=== PATIENT | female | born 1975 | race Caucasian/White ===

== ENCOUNTER → 2020-04-06 | Outpatient (CLI) | payer OTHER ==
[~2020-04-06] MED LIST: OXYC1TAB15 PO
== END ==
LOC: LAB 12:32
PROVIDERS: ATTEND Surgery
DX: Z01.812 Encounter for preprocedural laboratory examination (principal); Z20.822 Contact with and (suspected) exposure to COVID-19; K82.8 Other specified diseases of gallbladder
CPT/HCPCS: U0003

== ENCOUNTER 2020-04-09 05:54 | Day surgery (SDC) | payer OTHER ==
[~2020-04-09] VITALS: Ht 165.1 cm; Wt 99.8 kg
[2020-04-09] MEDS ORDERED: IV RINGERS,LACTATED 1000ML 1,000 ML IV SCH ×2 (06:30→07:00)
[2020-04-09] MEDS ORDERED: ACETAMINOPHEN 500 MG TABLET PO ONE (06:30)
[2020-04-09] MEDS ORDERED: MORPHINE SULFATE 2 MG/ML VIAL. IVP PRN (07:00)
[2020-04-09] MEDS ORDERED: fentaNYL PF VIAL 100 MCG/2 ML VIAL IVP PRN (07:00)
[2020-04-09] MEDS ORDERED: PROCHLORPERAZINE 10 MG/2 ML VIAL. IVP PRN (07:00)
[2020-04-09] MEDS ORDERED: HYDROmorphone 2 MG/ML VIAL IVP PRN (07:00)
[2020-04-09] MEDS ORDERED: IOHEXOL 300 MG/ML 50 ML VIAL. ONE (07:19)
[2020-04-09] MEDS ORDERED: BUPIVACAINE-EPI 0.25% 30 ML VIAL KIT. ONE (07:19)
[2020-04-09] MEDS ORDERED: SURGICEL HEMOSTAT 4X8 EACH. ONE (07:19)
[2020-04-09] MEDS ORDERED: MIDAZOLAM HCL/PF 2 MG/2 ML VIAL. ONE (07:32)
[2020-04-09] MEDS ORDERED: ROCURONIUM 50 MG/5 ML VIAL. ONE (07:32)
[2020-04-09] MEDS ORDERED: fentaNYL PF VIAL 100 MCG/2 ML VIAL ONE ×3 (07:33→09:22)
[2020-04-09] MEDS ORDERED: ONDANSETRON PF 4 MG/2 ML VIAL. ONE (07:48)
[2020-04-09] MEDS ORDERED: PROPOFOL 10 MG/ML (20ML) VIAL. IV ONE (07:48)
[2020-04-09] MEDS ORDERED: DEXAMETHASONE SOD PHOS 4 MG/ML VIAL ONE (07:48)
[2020-04-09] MEDS ORDERED: LIDOCAINE 2% PF 5 ML VIAL. ONE (07:48)
[2020-04-09] MEDS ORDERED: GLYCOPYRROLATE 1 MG/5 ML VIAL. ONE (07:49)
[2020-04-09] MEDS ORDERED: SEVOFLURANE 31 TO 60 MINUTES. IH ONE (07:49)
[2020-04-09] MEDS ORDERED: NEOSTIGMINE METHYLSULFATE 5 MG/5 ML SYRINGE. ONE (07:49)
--- NOTE | 2020-04-09 07:50 | PDOC1 ---
History and Physical Date of Admission Date of Admission DATE: 04/09/20 TIME: 07:47 Identification/Chief Complaint Chief Complaint Right upper quadrant abdominal pain Source Source: Patient History of Present Illness History of Present Illness 45-year-old female with several month history of right upper quadrant abdominal pain radiating to her back and shoulder worse after eating. She has had some nausea no vomiting ultrasound did not show any gallstones but HIDA scan showed ejection fraction of 1% Past Medical History Cardiovascular: No pertinent hx Pulmonary: No pertinent hx GI: No pertinent hx Heme/Onc: No pertinent hx Hepatobiliary: No pertinent hx Psych: No pertinent hx Rheumatologic: No pertinent hx Infectious disease: No pertinent hx ENT: No pertinent hx Renal/: No pertinent hx Endocrine: No pertinent hx Dermatology: No pertinent hx Past Surgical History Past Surgical History: Other (D&C) Family History Family History: No Significant Social History Smoke: No ALCOHOL: none Drugs: None Current Medications Current Medications Current Medications Cefazolin Sodium/ Dextrose 50 ml @ 100 mls/hr 1X PREOP PRN IV PRIOR TO PROCEDURE; Start 04/09/20 at 06:00; Stop 04/09/20 at 18:00 Acetaminophen (Tylenol) 1,000 mg 1X ONCE PO Last administered on 04/09/20at 06:36; Start 04/09/20 at 06:30; Stop 04/09/20 at 06:31; Status DC Ringer's Solution 1,000 ml @ 100 mls/hr Q10H IV Last administered on 04/09/20at 06:35; Start 04/09/20 at 06:30 Fentanyl Citrate (Fentanyl 2ml Vial) 25 mcg PRN Q5MIN PRN IVP MILD PAIN 1-3; Start 04/09/20 at 07:00; Stop 04/10/20 at 06:59 Fentanyl Citrate (Fentanyl 2ml Vial) 50 mcg PRN Q5MIN PRN IVP MODERATE PAIN 4- 6; Start 04/09/20 at 07:00; Stop 04/10/20 at 06:59 Morphine Sulfate (Morphine Sulfate) 1 mg PRN Q10MIN PRN IVP SEVERE PAIN 7-10; Start 04/09/20 at 07:00; Stop 04/10/20 at 06:59 Ringer's Solution 1,000 ml @ 30 mls/hr Q24H IV ; Start 04/09/20 at 07:00; Stop 04/09/20 at 18:59 Hydromorphone HCl (Dilaudid) 0.5 mg PRN Q10MIN PRN IVP SEVERE PAIN 7-10, 2nd CHOICE; Start 04/09/20 at 07:00; Stop 04/10/20 at 06:59 Prochlorperazine Edisylate (Compazine) 5 mg PACU PRN PRN IVP NAUSEA, MRX1; Start 04/09/20 at 07:00; Stop 04/10/20 at 06:59 Bupivacaine HCl/ Epinephrine Bitart (Sensorcain-Epi 0.25% Kit) 30 ml STK-MED ONCE .ROUTE ; Start 04/09/20 at 07:19; Stop 04/09/20 at 07:19; Status DC Iohexol (Omnipaque 300 Mg/ml) 50 ml STK-MED ONCE .ROUTE ; Start 04/09/20 at 07:19; Stop 04/09/20 at 07:19; Status DC Cellulose (Surgicel Hemostat 4x8) 1 each STK-MED ONCE .ROUTE ; Start 04/09/20 at 07:19; Stop 04/09/20 at 07:19; Status DC Rocuronium [place] (Zemuron) 50 mg STK-MED ONCE .ROUTE ; Start 04/09/20 at 07:32; Stop 04/09/20 at 07:32; Status DC Midazolam HCl (Versed) 2 mg STK-MED ONCE .ROUTE ; Start 04/09/20 at 07:32; Stop 04/09/20 at 07:32; Status DC Fentanyl Citrate (Fentanyl 2ml Vial) 100 mcg STK-MED ONCE .ROUTE ; Start 04/09/20 at 07:33; Stop 04/09/20 at 07:33; Status DC Active Scripts Active Reported No Known Medications Prior To Admisstion (Info) Each 1 Each MC 1X Allergies Allergies: Coded Allergies: No Known Drug Allergies (Unverified , 04/09/20) ROS Gastrointestinal: Yes Nausea, Yes Abdominal Pain Physical Exam General: Alert, Oriented X3, Cooperative, No acute distress HEENT: Atraumatic, EOMI Lungs: Clear to auscultation, Normal air movement Heart: RRR, no gallops Abdomen: Normal bowel sounds, Soft, Other (Mildly tender right upper quadrant) Rectal Exam: not examined Extremities: No edema Skin: No significant lesion Neuro: Normal speech Vitals Vitals Vital Signs Date Time Temp Pulse Resp B/P (MAP) Pulse Ox O2 Delivery O2 Flow Rate FiO2 04/09/20 06:32 97.6 72 18 96 97.6 04/09/20 06:29 104/63 Room Air Labs Labs Laboratory Tests Test 04/09/20 06:23 Bedside Urine HCG, Qualitative Hcg negative (Negative) Laboratory Tests Test 04/09/20 06:23 Bedside Urine HCG, Qualitative Hcg negative (Negative) VTE Prophylaxis Ordered VTE Prophylaxis Devices: Yes VTE Pharmacological Prophylaxi: Contraindicated Assessment/Plan Assessment/Plan Right upper quadrant abdominal pain abnormal HIDA scan biliary dyskinesia plan laparoscopic cholecystectomy Justifications for Admission Other Justification SARITA HENDERSON MD Apr 09, 2020 07:50
--- NOTE | 2020-04-09 08:37 | PDOC4 ---
Operative Note Operative Note Date: April 092020 at 834 Preoperative diagnosis: Biliary dyskinesia Postoperative diagnosis: Same Procedure: Laparoscopic cholecystectomy Surgeon: Jaime Specimen: Gallbladder Dictation: Patient is a 45-year-old female who is been complaining of right upper quadrant abdominal pain. A HIDA scan showed ejection fraction of only 1% with recurrence of her pain. Procedure of laparoscopic cholecystectomy was explained to the patient detail risk benefits were also discussed including bleeding infection injury to intra-abdominal contents possibly necessitating further or open operations. Alternatives to this procedure also discussed with patient who seemed to understand and gave both verbal and written consent to have the procedure performed. Patient was taken to the operating room placed in the supine position general anesthesia was initiated once patient was sleeping intubated her abdomen was prepped and draped usual sterile fashion using Chl oraPrep. Area just below the umbilicus was injected with quarter percent Marcaine with epinephrine incision was made 11 blade scalpel and a varies needle was placed within the abdomen creating pneumoperitoneum once this was complete the millimeter port was placed and a 5 mm camera is placed within the abdomen which was inspected no other abnormalities were noted. 5 mm port was placed in the epigastrium a 5 mm port was placed in the right midabdomen and a 5 mm port was placed in the right lateral abdomen. The dome of the gallbladder is grasped retracted cephalad the infundibulum of the gallbladder is grasped tract and laterally exposing the triangle adherent tissues the triangle were taken down exposing the cystic duct and cystic artery both were doubly clipped and transected the gallbladder was taken off the liver with hook electrocautery placed in Endo Catch bag moving the umbilicus the right upper quadrant is irrigated and suctioned dry hemostasis deemed be appropriate the pneumoperitoneum was reduced all ports removed the fascial defect at the umbilicus was closed with a [id number] 0 Vicryl suture and the skin was reapproximated all port sites for subcuticular Monocryl Mastisol Steri-Strips and island dressings were applied. Patient was awakened and extubated in the operating room taken to recovery in stable condition all sponge instrument needle counts listed as correct estimated blood loss 10 mL. SARITA HENDERSON MD Apr 09, 2020 08:37
--- NOTE | 2020-04-09 08:39 | DISCH ---
DISCHARGE INSTRUCTIONS Condition on Discharge Condition on Discharge: Stable Activity After Discharge Activity Instructions for Disc: Avoid exertion Other activity instructions: No lifting more than 20 pounds for 2 weeks Diet after Discharge Diet after Discharge: Low Fat Wound Incision Care Other wound/incision instructi: May shower in 24 hours Contacting the after DC Call your doctor for: If your condition worsens Follow-Up Follow up with: Dr. Henderson in 2 weeks SARITA HENDERSON MD Apr 09, 2020 08:39
[2020-04-09] MEDS: fentaNYL PF VIAL 100 MCG/2 ML VIAL IVP PRN ×3 (09:00→09:35)
[2020-04-09] MEDS ORDERED: OXYC1TAB15 PO (09:03)
[2020-04-09] MEDS ORDERED: oxyCODONE/APAP 5/325 1 TAB TABLET PO ONE ×2 (09:30)
[2020-04-09] MEDS ORDERED: PROCHLORPERAZINE 10 MG/2 ML VIAL. ONE (09:40)
[2020-04-09 10:05] VITALS: BP 133/72
--- NOTE | 2020-04-12 18:09 | PATHOLOGY ---
[facility] Accession Number: [id number] . 01 Material submitted: . gallbladder - GALLBLADDER AND CONTENTS . 01 Clinical history: . CHOLECYSTECTOMY . 02 Diagnosis: Gallbladder, cholecystectomy: - Cholesterolosis, focal. - Chronic cholecystitis. ([facility] 04/12/2020) OLT 04/12/2020 1627 Local . 02 Comment: There is no evidence of malignancy. . 02 Electronically signed: . Ravindra Smith MD, Pathologist NPI- [id number] . 01 Gross description: . Received in formalin labeled "Britt Sesay, gallbladder and contents" is an intact cholecystectomy specimen measuring 7.4 x 3.6 x 3.0 cm. The serosa is morse-pink and smooth and the specimen is opened to reveal yellow-green velvety mucosa without polyps or masses. The average wall thickness is 0.1 cm. A cyst is present at the fundus, measuring 0.9 cm in greatest dimension. Calculi are not identified. Psychometrist sections of the fundus and body and the cystic duct margin are submitted in A1. ([facility] [place]10[place]) [facility] 04/10[facility]2020 1119 Local . 02 Pathologist provided ICD-10: K81.1, K82.4 . 02 CPT . 674732 Specimen Comment: Report sent to [id number] Performed at: 01 [facility] [address], [place] [id number] MD Enrico Bradford MD Phone: [phone] Performed at: 02 [facility] [address] [place], [place] [id number] MD Ravindra Smith MD Phone: [phone]
== END 2020-04-09 10:44 | disposition home or self-care (01) ==
LOC: SURG 05:54 → EDUNIT# 08:00 → SURG 10:44
PROVIDERS: ATTEND Surgery
DX: K82.8 Other specified diseases of gallbladder (principal); K81.1 Chronic cholecystitis; J45.909 Unspecified asthma, uncomplicated; E66.9 Obesity, unspecified; Z79.899 Other long term (current) drug therapy; Z98.890 Other specified postprocedural states
CPT/HCPCS: 47562; 81025; J0690; J0780; J1100; J2250; J2405; J2704; J2710; J3010; J3490; J7120; Q9967